=== PATIENT | female | born 1995 | race Caucasian/White ===

== ENCOUNTER 2022-04-17 13:50 | Emergency (ER) | payer OTHER ==
[~2022-04-17] VITALS: Ht 162.6 cm; Wt 79.7 kg
[2022-04-17] MEDS ORDERED: ACET-683 PO (13:58)
[2022-04-17] MEDS ORDERED: IBUPROFEN 600MG TAB PO ONE (16:15)
[2022-04-17] MEDS ORDERED: METOCLOPRAMIDE 10MG TAB PO ONE (16:15)
[2022-04-17 17:05] VITALS: BP 144/89
== END 2022-04-17 17:15 | disposition home or self-care (01) ==
LOC: M ED 13:50
DX: R51.9 Headache, unspecified (principal); H93.13 Tinnitus, bilateral